=== PATIENT | male | born 1990 | race African-American/Black ===

== ENCOUNTER 2018-05-17 10:13 | Emergency (ER) | payer SELFPAY ==
[2018-05-17] MEDS ORDERED: fentaNYL 100 MCG/2 ML SDV IVPUSH ONE (10:36)
--- NOTE | 2018-05-17 10:47 | EDM.PDOC ---
ED HPI GENERAL MEDICAL PROBLEM - General Chief Complaint: General Stated Complaint: ABD PAIN Time Seen by Provider: 05/17/18 10:23 - History of Present Illness INITIAL COMMENTS - FREE TEXT/NARRATIVE: Tyrese is a 27 year old male with no significant PMH who presents to the ED via private vehicle with significant epigastric pain. He reports he was at work when the pain came on suddenly. He reports the pain comes in waves. He describes the pain as sharp and reports that it takes his breath away. Does report he has had a headache yesterday and today. He denies any chest pain, fever, chills, dizziness, N/V/D. Reports he ate a cheeseburger for supper last night and breakfast pizza this morning. He did take some Tylenol prior to ED presentation. Upper Abdominal Pain Score (Numeric/FACES): 10 - Related Data Allergies Allergy/AdvReac Type Severity Reaction Status Date / Time No Known Allergies Allergy Verified 05/17/18 10:28 Home Meds: Home Meds Pantoprazole Sodium [Protonix] 40 mg PO DAILY #30 tablet. 05/17/18 [Rx] Past Medical History - Past Health History Medical/Surgical History: Denies Medical/Surgical History Social & Family History - Family History Family Medical History: Noncontributory - Tobacco Use Smoking Status *Q: Current Every Day Smoker Years of Tobacco use: 20 Packs/Tins Daily: 1 - Recreational Drug Use Recreational Drug Use: No ED ROS GENERAL - Review of Systems Review Of Systems: See Below Constitutional: Reports: No Symptoms. Denies: Fever, Chills, Weakness, Fatigue , Decreased Appetite HEENT: Reports: No Symptoms Respiratory: Reports: Shortness of Breath. Denies: Wheezing, Pleuritic Chest Pain, Cough, Sputum Cardiovascular: Reports: Chest Pain. Denies: Dyspnea on Exertion, Edema, Lightheadedness, Palpitations, Syncope Endocrine: Reports: No Symptoms GI/Abdominal: Reports: Abdominal Pain. Denies: Black Stool, Bloody Stool, Constipation, Diarrhea, Decreased Appetite, Distension, Flatus, Hematemesis, Hematochezia, Melena, Nausea, Vomiting : Reports: No Symptoms. Denies: Dysuria, Flank Pain, Frequency, Urgency Musculoskeletal: Reports: No Symptoms Skin: Reports: No Symptoms Neurological: Reports: No Symptoms Psychiatric: Reports: No Symptoms Hematologic/Lymphatic: Reports: No Symptoms ED EXAM, GENERAL - Physical Exam Exam: See Below Exam Limited By: No Limitations General Appearance: Alert, WD/WN, Severe Distress Eye Exam: Bilateral Eye: EOMI, Normal Fundi, Normal Inspection, PERRL Ears: Normal External Exam, Normal Canal, Hearing Grossly Normal, Normal TMs Nose: Normal Inspection, Normal Mucosa, No Blood Throat/Mouth: Normal Inspection, Normal Lips, Normal Teeth, Normal Gums, Normal Oropharynx, Normal Voice, No Airway Compromise Head: Atraumatic, Normocephalic Neck: Normal Inspection, Supple, Non-Tender, Full Range of Motion Respiratory/Chest: No Respiratory Distress, Lungs Clear, Normal Breath Sounds, No Accessory Muscle Use, Chest Non-Tender Cardiovascular: Normal Peripheral Pulses, Regular Rate, Rhythm, No Edema, No Gallop, No JVD, No Murmur, No Rub GI/Abdominal: Normal Bowel Sounds, Soft, No Organomegaly, No Distention, No Abnormal Bruit, No Mass, Pelvis Stable, Tender (epigastric area) Back Exam: Normal Inspection, Full Range of Motion. No: CVA Tenderness (L), CVA Tenderness (R) Extremities: Normal Inspection, Normal Range of Motion, Non-Tender, Normal Capillary Refill, No Pedal Edema Neurological: Alert, Oriented, CN II-XII Intact, Normal Cognition, Normal Gait, Normal Reflexes, No Motor/Sensory Deficits Psychiatric: Anxious Skin Exam: Warm, Dry, Intact, Normal Color, No Rash Lymphatic: No Adenopathy Course - Vital Signs Last Recorded V/S: Last Vital Signs Temp 96 F 05/17/18 10:23 Pulse 75 05/17/18 10:56 Resp 22 H 05/17/18 10:23 BP 132/88 05/17/18 10:56 Pulse Ox 98 05/17/18 10:56 - Orders/Labs/Meds Labs: Laboratory Tests 05/17/18 05/17/18 05/17/18 Range/Units 10:25 10:25 10:25 WBC 4.7 L (5.0-10.0) 10^3/uL RBC 5.26 (4.50-6.00) 10^6/uL Hgb 15.8 (14.0-18.0) g/dL Hct 45.3 (40.0-54.0) % MCV 86.1 (82.0-94.0) fL MCH 30.0 (27.0-32.0) pg MCHC 34.9 (33.0-38.0) g/dL RDW Coeff of Gennaro 13.3 (11.0-15.0) % Plt Count 280 (150-400) 10^3/uL Neut % (Auto) 39.5 (35-85) % Lymph % (Auto) 43.0 (10-55) % Mills % (Auto) 13.9 (0-16) % Eos % (Auto) 3.2 (0-5) % Baso % (Auto) 0.4 (0-3) % Neut # (Auto) 1.87 (1.80-7.00) 10^3/uL Lymph # (Auto) 2.04 (1.00-4.80) 10^3/uL Mills # (Auto) 0.66 (0.00-0.80) 10^3/uL Eos # (Auto) 0.15 (0.00-0.45) 10^3/uL Baso # (Auto) 0.02 10^3/uL PT 11.1 (9.7-12.3) SEC INR 1.07 (0.92-1.18) APTT 29.3 (23.2-32.3) SEC Sodium 137 (136-145) mEq/L Potassium 4.1 (3.5-5.0) mEq/L Chloride 105 (98-106) mEq/L Carbon Dioxide 22 (21-32) mmol/L BUN 16 (7-18) mg/dL Creatinine 1.1 (0.7-1.3) mg/dL Est Cr Clr Drug Dosing 105.53 mL/min Estimated GFR (MDRD) > 60 (>=60) mL/min Glucose 77 (75-99) mg/dL Calcium 9.3 (8.4-10.1) mg/dL Total Bilirubin 0.4 (0.0-1.0) mg/dL AST 32 (15-37) U/L ALT 51 (12-78) U/L Alkaline Phosphatase 69 (46-116) U/L Lactate Dehydrogenase 183 (100-190) U/L Creatine Kinase 932 H (35-232) U/L Troponin I < 0.017 (0.00-0.06) ng/mL C-Reactive Protein < 0.2 L (0.2-0.8) mg/dL Total Protein 7.0 (6.4-8.2) g/dL Albumin 3.6 (3.4-5.0) g/dL Amylase 69 (25-115) U/L Urine Color (YELLOW) Urine Appearance (CLEAR) Urine pH (4.5-8.0) Ur Specific [place] (1.003-1.020) Urine Protein (NEGATIVE) mg/dL Urine Glucose (UA) (NEGATIVE) mg/dL Urine Ketones (NEGATIVE) mg/dL Urine Occult Blood (NEGATIVE) Urine Nitrite (NEGATIVE) Urine Bilirubin (NEGATIVE) Urine Urobilinogen (0.2-1.0) EU/dL Ur Leukocyte Esterase (NEGATIVE) Urine RBC (0-5) /HPF Urine WBC (0-5) /HPF Ur Epithelial Cells (NOT SEEN) /HPF Urine Opiates Screen (NEGATIVE) Ur Oxycodone Screen (NEGATIVE) Urine Methadone Screen (NEGATIVE) Ur Barbiturates Screen (NEGATIVE) U Tricyclic Antidepress (NEGATIVE) Ur Phencyclidine Scrn (NEGATIVE) Ur Amphetamine Screen (NEGATIVE) U Methamphetamines Scrn (NEGATIVE) Urine MDMA Screen (NEGATIVE) U Benzodiazepines Scrn (NEGATIVE) Urine Cocaine Screen (NEGATIVE) U Marijuana (THC) Screen (NEGATIVE) 05/17/18 05/17/18 Range/Units 12:05 12:05 WBC (5.0-10.0) 10^3/uL RBC (4.50-6.00) 10^6/uL Hgb (14.0-18.0) g/dL Hct (40.0-54.0) % MCV (82.0-94.0) fL MCH (27.0-32.0) pg MCHC (33.0-38.0) g/dL RDW Coeff of Gennaro (11.0-15.0) % Plt Count (150-400) 10^3/uL Neut % (Auto) (35-85) % Lymph % (Auto) (10-55) % Mills % (Auto) (0-16) % Eos % (Auto) (0-5) % Baso % (Auto) (0-3) % Neut # (Auto) (1.80-7.00) 10^3/uL Lymph # (Auto) (1.00-4.80) 10^3/uL Mills # (Auto) (0.00-0.80) 10^3/uL Eos # (Auto) (0.00-0.45) 10^3/uL Baso # (Auto) 10^3/uL PT (9.7-12.3) SEC INR (0.92-1.18) APTT (23.2-32.3) SEC Sodium (136-145) mEq/L Potassium (3.5-5.0) mEq/L Chloride (98-106) mEq/L Carbon Dioxide (21-32) mmol/L BUN (7-18) mg/dL Creatinine (0.7-1.3) mg/dL Est Cr Clr Drug Dosing mL/min Estimated GFR (MDRD) (>=60) mL/min Glucose (75-99) mg/dL Calcium (8.4-10.1) mg/dL Total Bilirubin (0.0-1.0) mg/dL AST (15-37) U/L ALT (12-78) U/L Alkaline Phosphatase (46-116) U/L Lactate Dehydrogenase (100-190) U/L Creatine Kinase (35-232) U/L Troponin I (0.00-0.06) ng/mL C-Reactive Protein (0.2-0.8) mg/dL Total Protein (6.4-8.2) g/dL Albumin (3.4-5.0) g/dL Amylase (25-115) U/L Urine Color Yellow (YELLOW) Urine Appearance Clear (CLEAR) Urine pH 7.0 (4.5-8.0) Ur Specific [place] 1.020 (1.003-1.020) Urine Protein Negative (NEGATIVE) mg/dL Urine Glucose (UA) Negative (NEGATIVE) mg/dL Urine Ketones Negative (NEGATIVE) mg/dL Urine Occult Blood Negative (NEGATIVE) Urine Nitrite Negative (NEGATIVE) Urine Bilirubin Negative (NEGATIVE) Urine Urobilinogen 0.2 (0.2-1.0) EU/dL Ur Leukocyte Esterase Negative (NEGATIVE) Urine RBC Not seen (0-5) /HPF Urine WBC 0-5 (0-5) /HPF Ur Epithelial Cells Occasional H (NOT SEEN) /HPF Urine Opiates Screen Negative (NEGATIVE) Ur Oxycodone Screen Negative (NEGATIVE) Urine Methadone Screen Negative (NEGATIVE) Ur Barbiturates Screen Negative (NEGATIVE) U Tricyclic Antidepress Negative (NEGATIVE) Ur Phencyclidine Scrn Negative (NEGATIVE) Ur Amphetamine Screen Negative (NEGATIVE) U Methamphetamines Scrn Negative (NEGATIVE) Urine MDMA Screen Negative (NEGATIVE) U Benzodiazepines Scrn Negative (NEGATIVE) Urine Cocaine Screen Negative (NEGATIVE) U Marijuana (THC) Screen Positive H (NEGATIVE) Meds: Medications Discontinued Medications Generic Name Dose Route Start Last Admin Trade Name Freq PRN Reason Stop Dose Admin Fentanyl 50 mcg 05/17/18 10:36 05/17/18 10:42 Sublimaze IVPUSH 05/17/18 10:37 50 mcg ONETIME ONE Administration Fentanyl 25 mcg 05/17/18 12:24 Sublimaze IVPUSH Q2H PRN Pain Sodium Chloride 1,000 mls @ 999 mls/hr 05/17/18 11:05 05/17/18 11:08 Normal Saline IV 05/17/18 12:05 999 mls/hr .BOLUS ONE Administration Sodium Chloride Confirm 05/17/18 10:55 05/17/18 11:11 Normal Saline Administered 05/17/18 10:56 Not Given Dose 1,000 mls @ as directed .ROUTE .STK-MED ONE Sodium Chloride 1,000 mls @ 150 mls/hr 05/17/18 12:30 05/17/18 12:53 Normal Saline IV 150 mls/hr ASDIRECTED DANTE Administration Iopamidol 100 ml 05/17/18 13:06 05/17/18 14:33 Isovue-300 (61%) IVPUSH 05/17/18 13:07 100 ml ONETIME ONE Administration Pantoprazole Sodium 40 mg 05/17/18 11:15 05/17/18 11:17 Protonix Iv IVPUSH 40 mg Q24H DANTE Administration - Re-Assessments/Exams Free Text/Narrative Re-Assessment/Exam: Discussed lab results with patient. Will start IVF. Proceed with abdominal US. Patient reports pain improved. Was given IV fentanyl and now IV protonix. Rayku reports excess air in epigastric area on US. Report not available. Opted to proceed with Chest CT given significant amount of discomfort patient appears to be in. Abdomen US and Abdomen/Pelvis CT negative for acute abnormalities. These findings were discussed with patient. Departure - Departure Time of Disposition: 16:01 Disposition: Home, Self-Care 01 Condition: Good Clinical Impression: GERD (gastroesophageal reflux disease) Qualifiers: Esophagitis presence: esophagitis presence not specified Qualified Code(s): K21.9 - Gastro-esophageal reflux disease without esophagitis - Discharge Information *PRESCRIPTION DRUG MONITORING PROGRAM REVIEWED*: Not Applicable *COPY OF PRESCRIPTION DRUG MONITORING REPORT IN PATIENT DOMO: Not Applicable Prescriptions: Pantoprazole Sodium [Protonix] 40 mg PO DAILY #30 tablet.dr Instructions: Food Choices for Gastroesophageal Reflux Disease, Adult, Easy-to- Read, Gastroesophageal Reflux Disease, Adult Referrals: PCP,None [Primary Care Provider] - Forms: ED Department Discharge Additional Instructions: Protonix daily for the next 30 days Avoid spicy foods, caffeine, greasy foods, and alcohol as these can all worsen reflux Stay upright for 30 minutes after eating to prevent reflux Follow up with primary care provider in clinic if symptoms worsen or do not improve
[2018-05-17 10:53] LABS: CHLORIDE,CL 105 mEq/L (98-106); SODIUM,NA 137 mEq/L (136-145)
[2018-05-17] MEDS ORDERED: Sodium Chloride 0.9% 1,000 ML ONE (10:55)
[2018-05-17] MEDS ORDERED: Sodium Chloride 0.9% 1,000 ML IV ONE (11:05)
[2018-05-17] MEDS ORDERED: Pantoprazole 40 MG Vial IVPUSH SCH (11:15)
[2018-05-17] MEDS ORDERED: fentaNYL 100 MCG/2 ML SDV IVPUSH PRN (12:24)
[2018-05-17] MEDS ORDERED: Sodium Chloride 0.9% 1,000 ML IV SCH (12:30)
[2018-05-17] MEDS ORDERED: Iopamidol 612 MG/ML 100 ML Bottle IVPUSH ONE (13:06)
== END 2018-05-17 16:15 | disposition home or self-care (01) ==
LOC: CC.ED 10:13
DX: K21.9 Gastro-esophageal reflux disease without esophagitis (principal); F17.210 Nicotine dependence, cigarettes, uncomplicated
CPT/HCPCS: 36415; 74177; 76700; 80053; 80305-QW; 81001; 82150; 82550; 83615; 84484; 85025; 85610; 85730; 86140; 93005; 96365; 96366; 96375; 99284; C9113; J3010; J7030; Q9967